=== PATIENT | female | born 1995 | race Hispanic/Latino ===

== ENCOUNTER 2018-08-04 10:13 | Inpatient (IN) | payer BC ==
--- NOTE | 2018-08-04 10:52 | RAD ---
HISTORY: Detox/Psy COMPARISON: None available. TECHNIQUE: Chest, one view. FINDINGS: LUNGS: Hypoinflation. No focal consolidation. Please note that chest x-ray has limited sensitivity for the detection of pulmonary masses. PLEURA: No significant pleural effusion identified. No definite pneumothorax . CARDIOVASCULAR: The cardiomediastinal silhouette appears within normal limits of size. No significant atherosclerotic calcification present. OSSEOUS STRUCTURES: No acute osseous abnormality identified. VISUALIZED UPPER ABDOMEN: Unremarkable. OTHER FINDINGS: None. IMPRESSION: Hypoinflation. No focal consolidation.
[2018-08-04 11:05] LABS: BASO % 0.6 % (0.0-2.0); EOS # 0.1 K/uL (0.0-0.7); EOS % 1.4 % (0.0-4.0); HEMOGLOBIN 14.8 g/dL (11.0-16.0); LYMPH # 1.4 K/uL (1.0-4.3); LYMPH % 17.4 % (20.0-40.0); MEAN CELL VOLUME 79.9 fL (81.0-99.0); MEAN CORPUSCULAR HEMOGLOBIN 26.2 pg (27.0-31.0); MEAN CORPUSCULAR HGB CONC 32.8 g/dL (33.0-37.0); MEAN PLATELET VOLUME 6.7 fL (7.2-11.7); MONO # 0.6 K/uL (0.0-0.8); NEUT # 5.9 K/uL (1.8-7.0); NEUT % 72.6 % (50.0-75.0); RBC 5.66 Mil/uL (3.80-5.20); WHITE BLOOD COUNT 8.1 K/uL (4.8-10.8)
[2018-08-04 11:12] LABS: HCG,QUALITATIVE URINE NEGATIVE (NEGATIVE); SQUAMOUS EPITHIAL 11 /hpf (0-5); URINE BILIRUBIN NEGATIVE (NEGATIVE); URINE BLOOD 2+ (NEGATIVE); URINE CLARITY Hazy (Clear); URINE COLOR Yellow (YELLOW); URINE GLUCOSE (UA) NORMAL (Normal); URINE LEUKOCYTE ESTERASE 1+ Leu/uL (Negative); URINE PROTEIN NEGATIVE (NEGATIVE); URINE UROBILINOGEN NORMAL mg/dL (0.2-1.0)
[2018-08-04 11:23] LABS: ACETAMINOPHEN < 10.0 ug/mL (10.0-30.0); SALICYLATE < 1.0 mg/dL 1
[2018-08-04 11:24] LABS: ALB/GLOB RATIO 1.4 (1.0-2.1); ALBUMIN 4.5 g/dL (3.5-5.0); ALT/SGPT 23 U/L (9-52); AST/SGOT 43 U/L (14-36); BLOOD UREA NITROGEN 9 mg/dL (7-17); CALCIUM 9.8 mg/dl (8.6-10.4); GFR NON-AFRICAN AMERICAN > 60
[2018-08-04 11:34] LABS: BARBITURATES, UR NEGATIVE (NEGATIVE); BENZODIAZEPINES, UR NEGATIVE (NEGATIVE); OPIATES, UR NEGATIVE (NEGATIVE); PHENCYCLIDINE, UR NEGATIVE (NEGATIVE)
[2018-08-04 12:39] VITALS: O2SAT 99
--- NOTE | 2018-08-04 14:12 | PCM.BM ---
<Caroline Garcian - Last Filed: 08/04/18 14:12> Treatment Plan Problems - Problems identified on initial assessmt Altered sleep patterns Date Initiated: 08/04/18 Time Initiated: 14:12 Assessment reference: NA Status: Active Suicidal Ideation Date Initiated: 08/04/18 Time Initiated: 14:12 Assessment reference: NA Status: Monitor Ineffective coping Date Initiated: 08/04/18 Time Initiated: 14:12 Assessment reference: NA Status: Active Treatment assets and liabiliti Patient Assests: adapts well, cooperative, ADL independent, physically healthy, negotiates basic needs, cognitively intact Patient Liabilities: financial problems - Milieu Protocol Maintain good personal hygiene: daily Encourage regular showers, daily Remind patient to perform daily oral care, daily Assist patient to perform ADL's Conduct patient checks and document Observation sheet: Q15 minutes Maintain personal safety: every shift Educate patient to report safety concerns to staff, every shift Monitor environment for contraband/sharps Medication safety: Monitor for expected outcome, potential side effects: every shift, Assess barriers to learning: every shift, Assess readiness for medication education: every shift <Alexandr Comer - Last Filed: 08/06/18 11:11> - Diagnosis (1) Bipolar depression Status: Acute Interventions: 08/06/18 11:11 * Assess/adjust medications daily and /or as needed * See patient on an individual basis 7x/week to assess level of manic behaviors and stability * Discuss risks, benefits, side effects and alternatives of medications * <Sandra Navarro - Last Filed: 08/06/18 13:04> Family Contact Family involvement: Family/SO is involved Family contact: Family has been contacted by patient - Goals for Treatment Patient goals for treatment: "I want to go to an outpatient program." Discharge/Continuing Care - Education Needs Education Needs: Patient Medication, Patient Diagnosis/Disease Process, Patient Coping Skills, Patient Placement options, Patient Community resources - Discharge Discharge Criteria: Free of Suicidal thoughts, Normal sleep pattern, Ability to care for self, Reduction of target symptoms Discharge to:: Home, With Family - Treatment Team Participation Discussed with Family/SO: No Was Patient/Family/SO present at Treatment Team Meeting: Yes
--- NOTE | 2018-08-04 16:04 | C.PDOC ---
History Of Present Illness 23 y/o female, with history of depression, presents to ED stating she wants to hurt herself by taking pills. Denies homicidal ideation. Patient denies any physical complaints at this time. Time Seen by Provider: 08/04/18 10:24 Chief Complaint (Nursing): Psychiatric Evaluation History Per: Patient History/Exam Limitations: no limitations Onset/Duration Of Symptoms: Days Current Symptoms Are (Timing): Still Present Past Medical History Reviewed: Historical Data, Nursing Documentation, Vital Signs Vital Signs: Last Vital Signs Temp 97.9 F 08/04/18 12:39 Pulse 94 H 08/04/18 15:49 Resp 18 08/04/18 14:01 BP 113/79 08/04/18 15:49 Pulse Ox 99 08/04/18 12:39 - Medical History PMH: Depression Denies: Diabetes, Hepatitis, HIV, HTN, Seizures, Sexually Transmitted Disease Family History: States: No Known Family Hx - Social History Hx Alcohol Use: Yes (Socially) Hx Substance Use: No - Immunization History Hx Tetanus Toxoid Vaccination: No Hx Influenza Vaccination: Yes Hx Pneumococcal Vaccination: No Review Of Systems Except As Marked, All Systems Reviewed And Found Negative. Constitutional: Negative for: Fever, Chills Psych: Positive for: Depression, Suicidal ideation. Negative for: Other (homicidal ideation) Physical Exam - Physical Exam Appears: Non-toxic, No Acute Distress Skin: Warm, Dry Head: Atraumatic, Normacephalic Eye(s): bilateral: Normal Inspection Oral Mucosa: Moist Neck: Supple Cardiovascular: Rhythm Regular, No Murmur Respiratory: Normal Breath Sounds, No Rales, No Rhonchi, No Wheezing Extremity: Bilateral: Atraumatic, Normal Color And Temperature, Normal ROM Neurological/Psych: Oriented x3, Normal Speech, Normal Cognition ED Course And Treatment - Laboratory Results Result Diagrams: 08/04/18 11:01 08/04/18 11:01 Lab Results: Total Bilirubin 0.6 mg/dL (0.2-1.3) 08/04/18 11:01 AST 43 U/L (14-36) H 08/04/18 11:01 ALT 23 U/L (9-52) 08/04/18 11:01 Alkaline Phosphatase 91 U/L (38-126) 08/04/18 11:01 Total Protein 7.9 g/dL (6.3-8.3) 08/04/18 11:01 Albumin 4.5 g/dL (3.5-5.0) 08/04/18 11:01 Globulin 3.4 gm/dL (2.2-3.9) 08/04/18 11:01 Albumin/Globulin Ratio 1.4 (1.0-2.1) 08/04/18 11:01 Urine Color Yellow (YELLOW) 08/04/18 11:01 Urine Clarity Hazy (Clear) 08/04/18 11:01 Urine pH 5.0 (5.0-8.0) 08/04/18 11:01 Ur Specific [place] 1.019 (1.003-1.030) 08/04/18 11:01 Urine Protein Negative mg/dL (NEGATIVE) 08/04/18 11:01 Urine Glucose (UA) Normal mg/dL (Normal) 08/04/18 11:01 Urine Ketones Negative mg/dL (NEGATIVE) 08/04/18 11:01 Urine Blood 2+ (NEGATIVE) H 08/04/18 11:01 Urine Nitrate Negative (NEGATIVE) 08/04/18 11:01 Urine Bilirubin Negative (NEGATIVE) 08/04/18 11:01 Urine Urobilinogen Normal mg/dL (0.2-1.0) 08/04/18 11:01 Ur Leukocyte Esterase 1+ Mari/uL (Negative) H 08/04/18 11:01 Urine WBC (Auto) 6 /hpf (0-5) H 08/04/18 11:01 Urine RBC (Auto) 11 /hpf (0-3) H 08/04/18 11:01 Ur Squamous Epith Cells 11 /hpf (0-5) H 08/04/18 11:01 Urine HCG, Qual Negative (NEGATIVE) 08/04/18 11:01 Urine HCG, Qual Negative (NEGATIVE) 08/04/18 11:01 ECG: Interpreted By Me, Viewed By Me ECG Rhythm: Sinus Rhythm Interpretation Of ECst degree AV block Rate From EC O2 Sat by Pulse Oximetry: 99 (RA) Pulse Ox Interpretation: Normal - Other Rad CXR X-Ray: Read By Radiologist Interpretation: FINDINGS: LUNGS: Hypoinflation. No focal consolidation. Please note that chest x-ray has limited sensitivity for the detection of pulmonary masses. PLEURA: No significant pleural effusion identified. No definite pneumothorax . CARDIOVASCULAR: The cardiomediastinal silhouette appears within normal limits of size. No significant atherosclerotic calcification present. OSSEOUS STRUCTURES: No acute osseous abnormality identified. VISUALIZED UPPER ABDOMEN: Unremarkable. OTHER FINDINGS: None. IMPRESSION: Hypoinflation. No focal consolidation. Medical Decision Making Medical Decision Making: Plan: --EKG --Labs --Chest XR --UA --Urine preg --Pneumovax Patient is medically cleared. Disposition - Disposition Disposition: HOSPITALIZED Disposition Time: 12:30 Condition: STABLE - Clinical Impression Clinical Impression: MDD (major depressive disorder) - Scribe Statement The provider has reviewed the documentation as recorded by the Emilie Lara Provider Attestation: All medical record entries made by the Emilie were at my direction and per sonally dictated by me. I have reviewed the chart and agree that the record accurately reflects my personal performance of the history, physical exam, medical decision making, and the department course for this patient. I have also personally directed, reviewed, and agree with the discharge instructions and disposition.
--- NOTE | 2018-08-05 00:03 | PCM.PSYCH ---
Initial Psychiatric Evaluation - Initial Psychiatric Evaluation Type of Admission: Voluntary Legal Status: Capacity Chief Complaint (in patient's own words): I was feeling depressed and suicidal.' History of Present Illness and Precipitating Events: Patient is a 23 YO F, diagnosed with depression, anxiety and mood disorder a week ago, presented to the [facility] ED on 08/04/18 with thoughts of suicide. She reported feeling depressed for months, but have been having worsening depression and thoughts of suicide over the course of last month. She reports currently having plans of suicide, but have not had any attempts. She had initially attributed her depressed mood to Nexplanon arm implant, which she has removed last month. She was diagnosed with PCOS during her implant removal visit. Stated having a panic attack on Thursday with nausea, vomiting and double vision. Patient has not been sleeping well, having difficulty staying asleep. She reports having no appetite yesterday and today, and feeling more fatigued. 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 She reports positive for visual hallucinations, seeing shadows and movements, denies auditory hallucinations. She denies any tobacco and recreational drug use, drinks alcohol socially. She denies abusing any drinking or any drugs. PMH: PCOS, obesity Current Medications: Active Medications Generic Name Dose Route Start Last Admin Trade Name Freq PRN Reason Stop Dose Admin Hydroxyzine HCl 25 mg 08/04/18 21:42 Atarax PO Q4H PRN Anxiety Ibuprofen 400 mg 08/04/18 20:31 08/04/18 21:21 Motrin Tab PO 400 mg Q8H PRN Administration Pain, moderate (4-7) Pneumococcal Polyvalent Vaccine 0.5 ml 08/07/18 10:00 Pneumovax 23 Vaccine IM 08/07/18 10:01 .ONCE ONE Zolpidem Tartrate 5 mg 08/04/18 21:42 08/04/18 22:03 Ambien PO 5 mg HS PRN Administration Insomnia Past Psychiatric History - Past Psychiatric History Previous Treatment History: None Pertinent Medical Hx (Current Medical&Sleep Prob, Allergies): Allergies Allergy/AdvReac Type Severity Reaction Status Date / Time No Known Allergies Allergy Verified 08/04/18 10:21 Hydroxyzine HCl 25 mg PO DAILY 08/04/18 Lamotrigine 25 mg PO BID 08/04/18 traZODone [trazODONE HYDROCHLORIDE] 50 mg PO HS 08/04/18 Review of Systems - Review of Systems All systems: reviewed and no additional remarkable complaints except - Psychiatric Psychiatric: Anxiety, Irritability, Mood Swings, Suicidal Ideation Mental Status Examination - Personal Presentation Personal Presentation: Looks stated age - Affect Affect: Constricted, Depressed - Motor Activity Motor Activity: Calm - Reliability in Providing Information Reliability in Providing Information: Fair - Speech Speech: Organized - Mood Mood: Depressed, Anxious - Formal Thought Process Formal Thought Process: No Impairment - Obsessions/Compulsions Obsessions: No Compulsions: No - Cognitive Functions Orientation: Person, Place, Situation, Time Sensorium: Alert Attention/Concentration: Attentive Abstract Thinking: [place] Estimate of Intelligence: Below average Judgement: Imparied, as evidence by: Poor judgement, Imparied, as evidence by: Lack of insight into illness - Risk Risk: Suicidal, Diminished functioning - Limitations Limitations: Living alone DSM 5 DX - DSM 5 DSM 5 Diagnosis: Bipolar disorder depressed severe without psychotic features - Recommended/Plan of Treatment Treatment Recommendations and Plan of Treatment: Bipolar disorder depressed severe without psychotic features -CBT -Supportive therapy, group therapy and milieu therapy -Psychoeducation -Hydroxyzine for anxiety -Neurontin for augmentation -Trazodone for insomnia -Ambien for insomnia -Lamictal for mood -Zoloft for depression - Smoking Cessation Smoking Cessation Initiated: No
[2018-08-05 08:54] LABS: FREE T4 0.98 ng/dL (0.78-2.19)
--- NOTE | 2018-08-06 11:08 | PCM.PYCHPN ---
Psychiatric Progress Note - Psychiatric Progress Note Patient seen today, length of contact: 15 min Problems Identified/Issues Discussed: Patient seen and evaluated, chart reviewed and discussed with the nurse. Patient reports irritability and agitation. She reports racing of thoughts and flight of ideas and anxiety. Patient reports depressed mood and at times feels of hopelessness and helplessness. However denies any auditory or visual hallucinations. She is taking medication and denied any side effects. Supportive therapy and psychoeducation were given Medication Change: Yes Medical Record Reviewed: Yes Mental Status Examination - Cognitive Function Orientation: Person, Place, Situation, Time Memory: Intact Attention: WNL Concentration: Poor Association: WNL Fund of Knowledge: Poor - Mood Mood: Depressed, Anxious - Affect Affect: Constricted, Depressed - Speech Speech: Soft - Formal Thought Process Formal Thought Process: No Impairment - Suicidal Ideation Suicidal Ideation: No - Homicidal Ideation Homicidal Ideation: No Goal/Treatment Plan - Goal/Treatment Plan Need for Continued Stay: Remain at risks for inpatient hospitalization Progress Toward Problem(s) and Goals/Treatment Plan: Bipolar disorder depressed severe with psychotic features -CBT -Supportive therapy, group therapy and milieu therapy -Psychoeducation -Hydroxyzine for anxiety -Trazodone for insomnia -Ambien for insomnia -Lamictal for mood -Zoloft for depression
[2018-08-07] MEDS ORDERED: Pneumococcal 23-Valent Vaccine IM ONE (10:00)
--- NOTE | 2018-08-07 11:37 | PCM.PYCHPN ---
Psychiatric Progress Note - Psychiatric Progress Note Patient seen today, length of contact: 15 min Patient Chief Complaint: I m feeling little better.' Problems Identified/Issues Discussed: Patient seen and evaluated, chart reviewed and discussed with the nurse. Patient reports some improvement in her irritability and agitation. She reports her anxiety is getting better than before. She reports some improvement in her depressed mood and reports some improvement in the feelings of hopelessness and helplessness. However denies any auditory or visual hallucinations. She is taking medication and denies any side effects. Supportive therapy and psychoeducation were given Medication Change: Yes Medical Record Reviewed: Yes Mental Status Examination - Cognitive Function Orientation: Person, Place, Situation, Time Memory: Intact Attention: WNL Concentration: Poor Association: WNL Fund of Knowledge: Poor - Mood Mood: Depressed, Anxious - Affect Affect: Constricted, Depressed - Speech Speech: Soft - Formal Thought Process Formal Thought Process: Flight of ideas - Suicidal Ideation Suicidal Ideation: No - Homicidal Ideation Homicidal Ideation: No Goal/Treatment Plan - Goal/Treatment Plan Need for Continued Stay: Remain at risks for inpatient hospitalization Progress Toward Problem(s) and Goals/Treatment Plan: Bipolar disorder depressed severe with psychotic features -CBT -Supportive therapy, group therapy and milieu therapy -Psychoeducation -Hydroxyzine for anxiety -Trazodone for insomnia -Ambien for insomnia -Lamictal for mood -Zoloft for depression
--- NOTE | 2018-08-07 14:09 | PCM.PYCHPN ---
Psychiatric Progress Note - Psychiatric Progress Note Patient seen today, length of contact: 15 min Patient Chief Complaint: I m feeling depressed.' Problems Identified/Issues Discussed: Patient seen and evaluated, chart reviewed and discussed with the nurse. Patient reports depressed mood and at times feels of hopelessness and helplessness. Patient reports irritability and agitation. She reports racing of thoughts and flight of ideas and anxiety. She reports VH but denies any auditory hallucinations. She is taking medication and denied any side effects. Supportive therapy and psychoeducation were given Medication Change: Yes Medical Record Reviewed: Yes Mental Status Examination - Cognitive Function Orientation: Person, Place, Situation, Time Memory: Intact Attention: WNL Concentration: Poor Association: WNL Fund of Knowledge: Poor - Mood Mood: Depressed, Anxious - Affect Affect: Constricted, Depressed - Speech Speech: Soft - Formal Thought Process Formal Thought Process: Hallucinations - Suicidal Ideation Suicidal Ideation: No - Homicidal Ideation Homicidal Ideation: No Goal/Treatment Plan - Goal/Treatment Plan Need for Continued Stay: Remain at risks for inpatient hospitalization Progress Toward Problem(s) and Goals/Treatment Plan: Bipolar disorder depressed severe with psychotic features -CBT -Supportive therapy, group therapy and milieu therapy -Psychoeducation -Hydroxyzine for anxiety -Trazodone for insomnia -Ambien for insomnia -Lamictal for mood -Zoloft for depression - Smoking Cessation Smoking Cessation Initiated: No
--- NOTE | 2018-08-08 20:17 | CARD ---
APPROVED REPORT Date of service: 08/04/2018 EKG Measurement Heart [id number] <Conclusion> Sinus tachycardia Cannot rule out Anterior infarct, age undetermined Abnormal ECG
[2018-08-09 06:51] VITALS: BP 107/73; PULSE 89; RESP 18; TEMP 97.7
--- NOTE | 2018-08-09 10:18 | PCM.PYCHDC ---
Mental Status Examination - Mental Status Examination Orientation: Person, Place, Situation, Time Memory: Intact Mood: Neutral Affect: Constricted Speech: Soft Attention: WNL Concentration: WNL Association: WNL Fund of Knowledge: WNL Formal Thought Process: No Impairment Description of patient's judgement and insight: good, fair Psychotic Thoughts and Behaviors: denies any AVH Suicidal Ideation: No Current Homicidal Ideation?: No Discharge Summary - Discharge Note Reason for Hospitalization: Patient is a 23 YO F, diagnosed with depression, anxiety and mood disorder a week ago, presented to the [facility] ED on 08/04/18 with thoughts of suicide. She reported feeling depressed for months, but have been having worsening depression and thoughts of suicide over the course of last month. She reports currently having plans of suicide, but have not had any attempts. She had initially attributed her depressed mood to Nexplanon arm implant, which she has removed last month. She was diagnosed with PCOS during her implant removal visit. Stated having a panic attack on Thursday with nausea, vomiting and double vision. Patient has not been sleeping well, having difficulty staying asleep. She reports having no appetite yesterday and today, and feeling more fatigued. 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 She reports positive for visual hallucinations, seeing shadows and movements, denies auditory hallucinations. She denies any tobacco and recreational drug use, drinks alcohol socially. She denies abusing any drinking or any drugs. Consultations:: List each consultation separately and include: 1. Reason for request. 2. Findings. 3. Follow-up Summary of Hospital Course include:: 1. Description of specific treatment plan utilized for patients during their course of treatmen. 2. Summarize the time- course for resolution of acute symptoms and/or regressed behaviors. 3. Describe issues identified and worked on during hospitalization. 4. Describe medication utilized. 5. Describe medical problems identified and treated. 6. Reassessment of suicide risk Summary of Hospital Course: Patient is a 23 YO F, diagnosed with depression, anxiety and mood disorder a week ago, presented to the [facility] ED on 08/04/18 with thoughts of suicide. She reported feeling depressed for months, but have been having worsening depression and thoughts of suicide over the course of last month. She reports currently having plans of suicide, but have not had any attempts. She had initially attributed her depressed mood to Nexplanon arm implant, which she has removed last month. She was diagnosed with PCOS during her implant removal visit. Stated having a panic attack on Thursday with nausea, vomiting and double vision. Patient has not been sleeping well, having difficulty staying asleep. She repor ts having no appetite yesterday and today, and feeling more fatigued. 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 She reports positive for visual hallucinations, seeing shadows and movements, denies auditory hallucinations. She denies any tobacco and recreational drug use, drinks alcohol socially. She denies abusing any drinking or any drugs. PMH: PCOS, obesity - Diagnosis (1) Bipolar depression Current Visit: Yes Status: Acute - Final Diagnosis (DSM 5) Condition upon Discharge: STABLE DSM 5: Bipolar disorder depressed severe with psychotic features Disposition: HOME/ ROUTINE Follow-up Treatment Plan: Bipolar disorder depressed severe with psychotic features -CBT -Supportive therapy, group therapy and milieu therapy -Psychoeducation -Hydroxyzine for anxiety -Trazodone for insomnia -Ambien for insomnia -Lamictal for mood -Zoloft for depression Prescriptions/Medication Reconciliation: hydrOXYzine HCl [Atarax] 25 mg PO BID PRN #60 tab PRN Reason: Anxiety Lamotrigine 25 mg PO BID #60 tablet Sertraline [Zoloft] 100 mg PO DAILY #30 tab traZODone [Desyrel] 100 mg PO HS #30 tab Zolpidem [Ambien] 5 mg PO HS PRN #30 tab PRN Reason: Insomnia - Smoking Cessation Smoking Cessation Medication prescribed: No - Antipsychotic Medications Pt discharged on 2 or more routine antipsychotic medications: No
== END 2018-08-09 12:28 | disposition home or self-care (01) | DRG 885 ==
LOC: C.ER 10:13 → C.5E 13:27
PROVIDERS: ADMIT Psychiatry & Neurology Psychiatry; ATTEND Psychiatry & Neurology Psychiatry
PROC: GZHZZZZ Group Psychotherapy (ICD-10-PCS; principal; 2018-08-04)
PROC: GZ58ZZZ Individual Psychotherapy, Cognitive-Behavioral (ICD-10-PCS; 2018-08-04)
PROC: GZ56ZZZ Individual Psychotherapy, Supportive (ICD-10-PCS; 2018-08-04)
DX: F31.5 Bipolar disorder, current episode depressed, severe, with psychotic features (principal); R45.851 Suicidal ideations; E28.2 Polycystic ovarian syndrome; E66.9 Obesity, unspecified; G47.00 Insomnia, unspecified; F41.9 Anxiety disorder, unspecified